=== PATIENT | male | born 1975 | race Caucasian/White ===

== ENCOUNTER 2016-12-12 17:07 | Inpatient (IN) | payer BC, OTHER ==
--- NOTE | 2016-12-12 17:27 | ED ---
General Adult HPI - General Chief complaint: Extremity Injury, Upper Stated complaint: Arm Swelling x2days (chemo pt) Time Seen by Provider: 12/12/16 17:15 Source: patient, RN notes reviewed Mode of arrival: ambulatory Limitations: no limitations - History of Present Illness Initial comments: This is a 41-year-old male who presents emergency department with past medical history significant for pancreatitis cancer. Patient has a port in place. Patient states he has his infusion pump removed yesterday and he slept on his arm wrong when he woke up his whole arm was swollen from the shoulder down. Patient denies the redness of the area. Patient denies any difficulty breathing shortness breath or chest pain. Patient states the left arm is completely normal. Patient denies any injury or trauma to the area. Patient denies any recent fever chills or cough. Patient denies any other symptoms at this time. Patient states he's got swelling to both legs but that has been something ongoing since he's got chemotherapy. Patient is on Xarelto. - Related Data Home Medications Medication Instructions Recorded Confirmed Arnica Gel Homeopathic 1 applic TOPICAL TID PRN 12/12/16 12/12/16 Diphenox-Atrop 2.5-0.025 mg 2 tab PO QID PRN 12/12/16 12/12/16 [Lomotil] HYDROcodone/APAP 10-325MG [[place] 1 - 2 tab PO Q4HR PRN MDD 6 TABS 12/12/1612/12 10-325] Iron Bisglycinate 25 mg PO BID 12/12/16 12/12/16 LORazepam [Ativan] 1 tab PO TID 12/12/16 12/12/16 Lidocaine-Prilocaine Cream [Emla 1 applic TOPICAL DAILY PRN 12/12/16 12/12/16 Cream 2.5%/2.5%] Lipase/Protease/Amylase [Daniel Baumann 3 cap PO TID 12/12/16 12/12/16 36,000 Units Capsule] Loperamide [Imodium] 2 - 4 mg PO QID PRN 12/12/16 12/12/16 Magnesium Citrate [Citrate of 150 ml PO BID PRN 12/12/16 12/12/16 Magnesia] Ondansetron HCl [Zofran] 8 mg PO Q8H PRN 12/12/16 12/12/16 Prochlorperazine [Compazine] 10 mg PO Q6H PRN 12/12/16 12/12/16 Rivaroxaban [Xarelto] 15 mg PO BID 12/12/16 12/12/16 Sennosides-Docusate Sodium 2 tab PO BID 12/12/16 12/12/16 [Senokot-S] Stomatitis Cocktail 5 - 10 ml PO TID PRN 12/12/16 12/12/16 Vitamin B Complex 1 cap PO DAILY 12/12/16 12/12/16 Previous Rx's Medication Instructions Recorded Famotidine [Pepcid] 20 mg PO BID #30 tablet 09/18/16 Allergies Allergy/AdvReac Type Severity Reaction Status Date / Time No Known Allergies Allergy Verified 12/12/16 17:30 Review of Systems ROS Statement: Those systems with pertinent positive or pertinent negative responses have been documented in the HPI. ROS Other: All systems not noted in ROS Statement are negative. Past Medical History Past Medical History: Cancer History of Any Multi-Drug Resistant Organisms: None Reported Past Surgical History: Orthopedic Surgery Additional Past Surgical History / Comment(s): right finger surgery Past Anesthesia/Blood Transfusion Reactions: No Reported Reaction Past Psychological History: Anxiety Smoking Status: Current every day smoker Past Alcohol Use History: Rare Past Drug Use History: None Reported - Past Family History Father Family Medical History: Diabetes Mellitus Additional Family Medical History / Comment(s): pacratic cancer. passed at age 45 Mother Family Medical History: Diabetes Mellitus Additional Family Medical History / Comment(s): cardiac stents General Exam - General Exam Comments Initial Comments: GENERAL: Patient is well-developed and well-nourished. Patient is nontoxic and well- hydrated and is in no acute distress. ENT: Neck is soft and supple. No significant lymphadenopathy is noted. Oropharynx is clear. Moist mucous membranes. Neck has full range of motion without eliciting any pain. EYES: The sclera were anicteric and conjunctiva were pink and moist. Extraocular movements were intact and pupils were equal round and reactive to light. Eyelids were unremarkable. PULMONARY: Unlabored respirations. Good breath sounds bilaterally. No audible rales rhonchi or wheezing was noted. CARDIOVASCULAR: Patient is slightly tachycardic at 105 beats a minute ABDOMEN: Soft and nontender with normal bowel sounds. No palpable organomegaly was noted. There is no palpable pulsatile mass. SKIN: Skin is clear with no lesions or rashes and otherwise unremarkable. NEUROLOGIC: Patient is alert and oriented x3. Cranial nerves II through XII are grossly intact. Motor and sensory are also intact. Normal speech, volume and content. Symmetrical smile. MUSCULOSKELETAL: Normal extremities with adequate strength and full range of motion. Both legs have a edema bilaterally. Right arm is swollen from the shoulder down. Left arm is completely normal. LYMPHATICS: No significant lymphadenopathy is noted PSYCHIATRIC: Normal psychiatric evaluation. Normal interpersonal interactions appears functionally intact in deals appropriately with others. No signs of depression. No signs of anxiety. Limitations: no limitations Course Vital Signs 12/12/16 17:12 Temperature 99.5 F Pulse Rate 120 H Respiratory 18 Rate Blood Pressure 153/95 O2 Sat by Pulse 98 Oximetry Medical Decision Making - Medical Decision Making Patient is positive for blood clot in the right arm per the ultrasound. I started the patient on heparin. I spoke with the nurse practitioner for Dr. Moody's group and admitted the patient. I wrote admitting orders. Patient states he has no chest pain no difficulty breathing at this time. Critical Care Time Critical Care Time: Yes Total Critical Care Time: 35 Disposition Clinical Impression: DVT (deep venous thrombosis) Disposition[facility] Time of Disposition: 18:28
[2016-12-12] MEDS ORDERED: HEPARIN SODIUM,PORCINE 10,000 UNIT/ML 1 ML VIAL IV ONE (18:26)
[2016-12-12] MEDS ORDERED: SODIUM CHLORIDE 0.9% 1,000 ML IV ONE (18:28)
[2016-12-12] MEDS ORDERED: HYDROmorphone 1 MG/ML 1 ML SYRINGE IVP STA (18:53)
[2016-12-12 18:54] LABS: Basophils % (A) 0 %; CH 27.1; CHCM 31.8; Eosinophils # (A) 0.1 k/uL (0-0.7); Eosinophils % (A) 1 %; HCT 35.8 % (39.0-53.0); HDW 2.99; HGB 11.4 gm/dL (13.0-17.5); Hypochromasia Slight; Luc # (Auto) 0.05; Luc % (Auto) 1; Lymphocytes # (A) 0.8 k/uL (1.0-4.8); Lymphocytes % (A) 10 %; MCH 27.1 pg (25.0-35.0); MCHC 31.7 g/dL (31.0-37.0); MCV 85.4 fL (80.0-100.0); Mean Platelet Volume 7.6; Monocytes # (A) 0.1 k/uL (0-1.0); Monocytes % (A) 1 %; Neutrophils # (A) 6.9 k/uL (1.3-7.7); Neutrophils % (A) 87 %; RDW 15.1 % (11.5-15.5); WBC 7.9 k/uL (3.8-10.6); WBC (Perox) 8.65
[2016-12-12] MEDS ORDERED: HYDROmorphone 1 MG/ML 1 ML SYRINGE IM PRN (18:54)
[2016-12-12] MEDS: HEPARIN SODIUM,PORCINE/D5W PMX 25,000 UNIT in DEXTROSE/WATER 1 500ML.BAG IV SCH (18:56)
[2016-12-12 19:08] LABS: ALT 83 U/L (21-72); AST 113 U/L (17-59); Alkaline Phosphatase 509 U/L (38-126); Anion Gap 11 mmol/L; Blood Urea Nitrogen 18 mg/dL (9-20); Calcium 8.7 mg/dL (8.4-10.2); Carbon Dioxide 28 mmol/L (22-30); Chloride 96 mmol/L (98-107); Glucose 140 mg/dL (74-99); Non-African American GFR(MDRD) >60 (>60 ml/min/1.73 sqM); Potassium 3.9 mmol/L (3.5-5.1); Sodium 135 mmol/L (137-145); Total Bilirubin 1.1 mg/dL (0.2-1.3); Total Protein 6.5 g/dL (6.3-8.2)
--- NOTE | 2016-12-12 19:42 | US ---
EXAMINATION TYPE: US venous doppler duplex UE RT DATE OF EXAM: 12/12/2016 6:29 PM COMPARISON: NONE CLINICAL HISTORY: Pain, right arm swelling. SIDE PERFORMED: Right TECHNOLOGIST IMPRESSION: Right Arm: Positive for DVT, starting at the upper IJV and extending through the axilla v. The upper basil v also has superficial clot. Findings discussed with nurse Austin at 1930PM when the dictation became unlocked. IMPRESSION: Deep venous thrombosis of the upper internal jugular vein extending through the axilla. Additionally the upper basilic vein is also thrombosed.
[2016-12-12 19:54] LABS: INR 1.4 (<1.1); Partial Thromboplastin Time 26.4 sec (22.0-30.0); Prothrombin Time 13.6 sec (9.0-12.0)
[2016-12-12 20:15] VITALS: BMI 22.1
[2016-12-12] MEDS: ONDANSETRON 4 MG/2 ML VIAL IVP PRN (22:14)
[2016-12-12] MEDS: HYDROmorphone 1 MG/ML 1 ML SYRINGE IVP PRN (23:52)
[2016-12-13] MEDS ORDERED: HEPARIN SODIUM,PORCINE 10,000 UNIT/ML 1 ML VIAL IV STA (02:48)
[2016-12-13] MEDS: HYDROmorphone 1 MG/ML 1 ML SYRINGE IVP PRN ×6 (03:33→22:24)
[2016-12-13] MEDS: HEPARIN SODIUM,PORCINE/D5W PMX 25,000 UNIT in DEXTROSE/WATER 1 500ML.BAG IV SCH (12:36)
[2016-12-13] MEDS: ONDANSETRON 4 MG/2 ML VIAL IVP PRN ×2 (16:36→22:29)
[2016-12-13] MEDS: LIPASE 5,000/PROTEASE 17,000/AMYLASE 27,0000 PO SCH (17:21)
--- NOTE | 2016-12-13 18:05 | P.HPIM ---
History of Present Illness H&P Date: 12/13/16 Chief Complaint: Forearm swelling 41-year-old gentleman with stage IV pancreatic cancer comes in the hospital with progressive worsening of right arm swelling. Patient was diagnosed with the pancreas cancer with metastases to the liver and is currently being treated cancer centers of [facility]. Patient apparently underwent his last cycle of chemotherapy of unknown drug 2 days ago. Patient started to notice progressive worsening of his arm swelling. Patient was apparently told he needs to have a different type of chemotherapy as his disease has progressed. Patient apparently has a computed tomography scan done within the last few days. Patient has had a MediPort in his chest. Patient has been maintaining ulcer although as he had a PICC line induced DVT on the left upper arm within the last month. Currently denies having any chest pain difficulty breathing nausea vomiting or diarrhea. Patient may complaints are pain in his right upper arm and bilateral lower extremities. Review of Systems All systems: negative (Noted in HPI) Past Medical History Past Medical History: Cancer, Deep Vein Thrombosis (DVT), Pulmonary Embolus (PE) Additional Past Medical History / Comment(s): panceratic cancer diag Sep 2016, Last chemo treament was 12/12/16, infusion pump was removed right side and DVt developed. Pt has a HX of blood clots in spleen, kidney , PE History of Any Multi-Drug Resistant Organisms: None Reported Past Surgical History: Orthopedic Surgery Additional Past Surgical History / Comment(s): right finger surgery, right subclavian port placed 4 weeks ago Past Anesthesia/Blood Transfusion Reactions: No Reported Reaction Past Psychological History: Anxiety Smoking Status: Current every day smoker Past Alcohol Use History: Rare Past Drug Use History: None Reported - Past Family History Father Family Medical History: Diabetes Mellitus Additional Family Medical History / Comment(s): pacratic cancer. passed at age 45 Mother Family Medical History: Diabetes Mellitus Additional Family Medical History / Comment(s): cardiac stents Medications and Allergies Home Medications Medication Instructions Recorded Confirmed Type Arnica Gel Homeopathic 1 applic TOPICAL TID PRN 12/12/16 12/12/16 History Diphenox-Atrop 2.5-0.025 mg 2 tab PO QID PRN 12/12/16 12/12/16 History [Lomotil] HYDROcodone/APAP 10-325MG [[place] 1 - 2 tab PO Q4HR PRN MDD 6 TABS 12/12/1612/12 History 10-325] Iron Bisglycinate 25 mg PO BID 12/12/16 12/12/16 History LORazepam [Ativan] 1 tab PO TID 12/12/16 12/12/16 History Lidocaine-Prilocaine Cream [Emla 1 applic TOPICAL DAILY PRN 12/12/16 12/12/16 History Cream 2.5%/2.5%] Lipase/Protease/Amylase [Daniel Dr 3 cap PO TID 12/12/16 12/12/16 History 36,000 Units Capsule] Loperamide [Imodium] 2 - 4 mg PO QID PRN 12/12/16 12/12/16 History Magnesium Citrate [Citrate of 150 ml PO BID PRN 12/12/16 12/12/16 History Magnesia] Ondansetron HCl [Zofran] 8 mg PO Q8H PRN 12/12/16 12/12/16 History Prochlorperazine [Compazine] 10 mg PO Q6H PRN 12/12/16 12/12/16 History Rivaroxaban [Xarelto] 15 mg PO BID 12/12/16 12/12/16 History Sennosides-Docusate Sodium 2 tab PO BID 12/12/16 12/12/16 History [Senokot-S] Stomatitis Cocktail 5 - 10 ml PO TID PRN 12/12/16 12/12/16 History Vitamin B Complex 1 cap PO DAILY 12/12/16 12/12/16 History Allergies Allergy/AdvReac Type Severity Reaction Status Date / Time No Known Allergies Allergy Verified 12/12/16 17:30 Physical Exam Vitals: Vital Signs Temp Pulse Resp BP Pulse Ox 12/13/16 16:27 98.4 F 84 16 127/91 96 12/13/16 16:20 16 12/13/16 11:55 92 16 152/73 95 12/13/16 09:28 98.1 F 12/13/16 08:16 16 12/13/16 08:14 94 16 140/88 95 12/13/16 04:00 98.3 F 92 18 135/74 93 L 12/13/16 00:00 99.0 F 88 18 124/76 97 12/12/16 21:25 98.2 F 88 18 132/69 99 12/12/16 20:01 98.1 F 82 16 134/86 97 Intake and Output 12/13/16 12/13/16 12/13/16 06:59 14:59 22:59 Intake Total 880.913 682.087 Output Total 150 400 Balance 730.913 282.087 Intake: IV 288 Heparin Sodium,Porcine/ 208 D5w Pmx 25,000 unit In Dextrose/Water 1 500ml. bag @ 18 UNITS/KG/HR 26. 12 mls/hr IV .Q19H9M PENDING SALE TO [facility] Rx#:[id number] Sodium Chloride 0.9% 1, 80 000 ml @ 75 mls/hr IV . [id number] ONE Rx#:[id number] Intake, IV Titration 880.913 294.087 Amount Heparin Sodium,Porcine/ 205.913 294.087 D5w Pmx 25,000 unit In Dextrose/Water 1 500ml. bag @ 18 UNITS/KG/HR 26. 12 mls/hr IV .Q19H9M PENDING SALE TO [facility] Rx#:[id number] Sodium Chloride 0.9% 1, 675 000 ml @ 75 mls/hr IV . [id number] ONE Rx#:[id number] Oral 100 Output: Urine 150 400 Other: Weight 72.3 kg Gen. appearance oriented 3 appears to be in some distress Neck is supple no JVD Right upper extremity significant edema pitting in nature and tenderness to palpation report is noted on the right anterior chest cavity no tenderness to palpation of the site Lungs good air entry clear to auscultation no rhonchi or wheezing Heart S1-S2 heart regular rate and rhythm no murmurs appreciable Abdomen diffusely tender there is some enlargement that is appreciated in the mid abdominal region Neuro no focal motor or sensory deficits noted Extremities 1+ edema tender to palpation diffusely in the lower activities. Results CBC & Chem 7: 12/12/16 18:40 12/12/16 18:40 Labs: Abnormal Lab Results - Last 24 Hours (Table) 12/12/16 12/12/16 12/12/16 Range/Units 18:40 18:40 18:40 RBC 4.20 L (4.30-5.90) m/uL Hgb 11.4 L (13.0-17.5) gm/dL Hct 35.8 L (39.0-53.0) % Plt Count 106 L (150-450) k/uL Lymphocytes # 0.8 L (1.0-4.8) k/uL PT 13.6 H (9.0-12.0) sec APTT (22.0-30.0) sec Sodium 135 L (137-145) mmol/L Chloride 96 L (98-107) mmol/L Glucose 140 H (74-99) mg/dL AST 113 H (17-59) U/L ALT 83 H (21-72) U/L Alkaline Phosphatase 509 H (38-126) U/L Albumin 2.9 L (3.5-5.0) g/dL 12/13/16 12/13/16 Range/Units 01:37 08:47 RBC (4.30-5.90) m/uL Hgb (13.0-17.5) gm/dL Hct (39.0-53.0) % Plt Count (150-450) k/uL Lymphocytes # (1.0-4.8) k/uL PT (9.0-12.0) sec APTT 39.1 H 56.2 H (22.0-30.0) sec Sodium (137-145) mmol/L Chloride (98-107) mmol/L Glucose (74-99) mg/dL AST (17-59) U/L ALT (21-72) U/L Alkaline Phosphatase (38-126) U/L Albumin (3.5-5.0) g/dL Thrombosis Risk Factor Assmnt - Choose All That Apply Each Factor Represents 1 point: Age 41-60 years Other Risk Factors: Yes Each Risk Factor Represents 3 Points: History of DVT/PE Thrombosis Risk Factor Assessment Total Risk Factor Score: 4 Thrombosis Risk Factor Assessment Level: Moderate Risk Assessment and Plan Plan: #1 catheter associated deep venous thrombus of the right upper extremity in a patient with stage IV pancreatic cancer #2 history of DVT in the left upper extremity was currently on Cymbalta and has been compliant #3 stage IV pancreatic cancer. #4 history of hypertension. Plan We'll have a vascular surgeon consultation for removal of the catheter at this time. Patient's pain would improve after the catheter is removed Pain control. Patient does have stage IV cancer and has poor prognosis. We'll have her oncologist to the patient. I did request the scans and other treatment plans from cancer centers available. We'll record changer assembler the anticoagulation from IV heparin to Lovenox as it is preferred in oncologic patient's.
[2016-12-13] MEDS: FAMOTIDINE 20 MG TAB PO SCH (20:50)
[2016-12-13] MEDS: SENNOSIDES-DOCUSATE SODIUM 1 EACH TAB PO SCH (20:50)
[2016-12-13] MEDS: LORazepam 1 MG TAB PO SCH (20:51)
[2016-12-13] MEDS: ENOXAPARIN 80 MG/0.8 ML SYRINGE SQ SCH (20:51)
[2016-12-14] MEDS: HYDROmorphone 1 MG/ML 1 ML SYRINGE IVP PRN ×5 (01:22→13:03)
[2016-12-14 06:30] LABS: INR 1.4 (<1.1); Partial Thromboplastin Time 31.8 sec (22.0-30.0); Prothrombin Time 13.6 sec (9.0-12.0)
--- NOTE | 2016-12-14 07:19 | P.GSCN ---
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 Pulses present impression is deep and thrombosis of the right arm including internal jugular vein patient is on heparin heparin we will remove the Port-A-Cath risk and complication bleeding infection has been discussed Past Medical History Past Medical History: Cancer, Deep Vein Thrombosis (DVT), Pulmonary Embolus (PE) Additional Past Medical History / Comment(s): panceratic cancer diag Sep 2016, Last chemo treament was 12/12/16, infusion pump was removed right side and DVt developed. Pt has a HX of blood clots in spleen, kidney , PE History of Any Multi-Drug Resistant Organisms: None Reported Past Surgical History: Orthopedic Surgery Additional Past Surgical History / Comment(s): right finger surgery, right subclavian port placed 4 weeks ago Past Anesthesia/Blood Transfusion Reactions: No Reported Reaction Past Psychological History: Anxiety Smoking Status: Current every day smoker Past Alcohol Use History: Rare Past Drug Use History: None Reported - Past Family History Father Family Medical History: Diabetes Mellitus Additional Family Medical History / Comment(s): pacratic cancer. passed at age 45 Mother Family Medical History: Diabetes Mellitus Additional Family Medical History / Comment(s): cardiac stents Medications and Allergies Home Medications Medication Instructions Recorded Confirmed Type Arnica Gel Homeopathic 1 applic TOPICAL TID PRN 12/12/16 12/12/16 History Diphenox-Atrop 2.5-0.025 mg 2 tab PO QID PRN 12/12/16 12/12/16 History [Lomotil] HYDROcodone/APAP 10-325MG [[place] 1 - 2 tab PO Q4HR PRN MDD 6 TABS 12/12/1612/12 History 10-325] Iron Bisglycinate 25 mg PO BID 12/12/16 12/12/16 History LORazepam [Ativan] 1 tab PO TID 12/12/16 12/12/16 History Lidocaine-Prilocaine Cream [Emla 1 applic TOPICAL DAILY PRN 12/12/16 12/12/16 History Cream 2.5%/2.5%] Lipase/Protease/Amylase [Creon Dr 3 cap PO TID 12/12/16 12/12/16 History 36,000 Units Capsule] Loperamide [Imodium] 2 - 4 mg PO QID PRN 12/12/16 12/12/16 History Magnesium Citrate [Citrate of 150 ml PO BID PRN 12/12/16 12/12/16 History Magnesia] Ondansetron HCl [Zofran] 8 mg PO Q8H PRN 12/12/16 12/12/16 History Prochlorperazine [Compazine] 10 mg PO Q6H PRN 12/12/16 12/12/16 History Rivaroxaban [Xarelto] 15 mg PO BID 12/12/16 12/12/16 History Sennosides-Docusate Sodium 2 tab PO BID 12/12/16 12/12/16 History [Senokot-S] Stomatitis Cocktail 5 - 10 ml PO TID PRN 12/12/16 12/12/16 History Vitamin B Complex 1 cap PO DAILY 12/12/16 12/12/16 History Allergies Allergy/AdvReac Type Severity Reaction Status Date / Time No Known Allergies Allergy Verified 12/12/16 17:30 Surgical - Exam Vital Signs Temp Pulse Resp BP Pulse Ox 99.5 F 120 H 18 153/95 98 12/12/16 17:12 12/12/16 17:12 12/12/16 17:12 12/12/16 17:12 12/12/16 17:12 Results - Labs 12/12/16 18:40 12/12/16 18:40 Abnormal Lab Results - Last 24 Hours (Table) 12/13/16 12/14/16 Range/Units 08:47 06:01 PT 13.6 H (9.0-12.0) sec APTT 56.2 H 31.8 H (22.0-30.0) sec
[2016-12-14] MEDS: ONDANSETRON 4 MG/2 ML VIAL IVP PRN (07:25)
[2016-12-14] MEDS: LIPASE 5,000/PROTEASE 17,000/AMYLASE 27,0000 PO SCH ×2 (07:59→14:04)
[2016-12-14] MEDS ORDERED: MIDAZOLAM 2 MG/2 ML VIAL ONE (08:05)
[2016-12-14] MEDS ORDERED: LIDOCAINE 1% INJ 10MG/ML (20 ML MDV) ONE (08:05)
[2016-12-14] MEDS ORDERED: fentaNYL (PF) 50 MCG/ML 2 ML AMP ONE (08:05)
[2016-12-14] MEDS ORDERED: PROPOFOL 10 MG/ML 20 ML VIAL IV ONE (08:05)
[2016-12-14] MEDS ORDERED: KETAMINE 10 MG/ML 20 ML VIAL ONE (08:05)
[2016-12-14] MEDS ORDERED: SODIUM CHLORIDE 0.9% 50 ML with ceFAZolin 2,000 MG IV ONE ×2 (08:21)
[2016-12-14] MEDS ORDERED: LACTATED RINGERS 1,000 ML IV ONE (08:21)
[2016-12-14] MEDS ORDERED: LIDOCAINE 1% INJ 10MG/ML (20 ML MDV) SQ ONE (08:23)
--- NOTE | 2016-12-14 08:45 | P.PCN ---
Description of Procedure: Diagnoses is carcinoma of the pancreas, history of deep vein thrombosis of the right arm and right internal jugular vein Procedure patient was brought to the operating room right side of the chest and neck was prepped and draped applied 1% lidocaine for infected this patient had a -dual-chamber Port-A-Cath transverse incision was made The deepened through the skin and subcu subcutaneous tissue Port-A-Cath was removed along with the catheter wound was irrigated with saline hemostasis was controlled incision was closed in 2 layers skin was closed with 5-0 nylon with interrupted suture dressing applied patient had the procedure well
[2016-12-14 08:57] VITALS: TEMP 98
[2016-12-14] MEDS: FAMOTIDINE 20 MG TAB PO SCH (10:21)
[2016-12-14] MEDS: ENOXAPARIN 80 MG/0.8 ML SYRINGE SQ SCH (10:21)
[2016-12-14] MEDS: SENNOSIDES-DOCUSATE SODIUM 1 EACH TAB PO SCH (10:21)
[2016-12-14 11:13] VITALS: BP 136/79; PULSE 76; RESP 12
[2016-12-14] MEDS: LORazepam 1 MG TAB PO SCH (14:04)
--- NOTE | 2017-01-14 14:48 | P.DS ---
Providers Date of admission: 12/12/16 18:29 Attending physician: Tarik Sandoval Consults: 12/13/16 16:10 Consult Physician Urgent Consulting Provider: El Franco Consult Reason/Comments: DVT< port removal Do you want consulting provider notified?: Yes Primary care physician: Physician Nonstaff Hospital Course: 41-year-old gentleman with stage IV pancreatic cancer comes in the hospital with progressive worsening of right arm swelling. Patient was diagnosed with the pancreas cancer with metastases to the liver and is currently being treated [facility]. Patient apparently underwent his last cycle of chemotherapy of unknown drug 2 days ago. Patient started to notice progressive worsening of his arm swelling. Patient was apparently told he needs to have a different type of chemotherapy as his disease has progressed. Patient apparently has a computed tomography scan done within the last few days. Patient has had a MediPort in his chest. Patient has been maintaining ulcer although as he had a PICC line induced DVT on the left upper arm within the last month. Currently denies having any chest pain difficulty breathing nausea vomiting or diarrhea. Patient may complaints are pain in his right upper arm and bilateral lower extremities. improved on the day of discharge. Gen. appearance oriented 3 appears to be in some distress Neck is supple no JVD Right upper extremity significant edema pitting in nature and tenderness to palpation report is noted on the right anterior chest cavity no tenderness to palpation of the site Lungs good air entry clear to auscultation no rhonchi or wheezing Heart S1-S2 heart regular rate and rhythm no murmurs appreciable Abdomen diffusely tender there is some enlargement that is appreciated in the mid abdominal region Neuro no focal motor or sensory deficits noted Extremities 1+ edema tender to palpation diffusely in the lower activities. #1 catheter associated deep venous thrombus of the right upper extremity in a patient with stage IV pancreatic cancer #2 history of DVT in the left upper extremity was currently on Cymbalta and has been compliant #3 stage IV pancreatic cancer. #4 history of hypertension. Plan Catheter was removed Discharged home on lovenox. Follow up with oncology Plan - Discharge Summary New Discharge Prescriptions: HYDROmorphone HCL [Dilaudid] 4 mg PO Q4H PRN #60 tab PRN Reason: Pain Scale 7 To 10 Discharge Medication List Famotidine [Pepcid] 20 mg PO BID #30 tablet 09/18/16 [Rx] Arnica Gel Homeopathic 1 applic TOPICAL TID PRN 12/12/16 [History] Diphenox-Atrop 2.5-0.025 mg [Lomotil] 2 tab PO QID PRN 12/12/16 [History] HYDROcodone/APAP 10-325MG [Leopold 10-325] 1 - 2 tab PO Q4HR PRN MDD 6 TABS [History] Iron Bisglycinate 25 mg PO BID 12/12/16 [History] LORazepam [Ativan] 1 tab PO TID 12/12/16 [History] Lidocaine-Prilocaine Cream [Emla Cream 2.5%/2.5%] 1 applic TOPICAL DAILY PRN 12/26 [History] Lipase/Protease/Amylase [Creon Dr 36,000 Units Capsule] 3 cap PO TID 12/12/16 [ History] Loperamide [Imodium] 2 - 4 mg PO QID PRN 12/12/16 [History] Magnesium Citrate [Citrate of Magnesia] 150 ml PO BID PRN 12/12/16 [History] Ondansetron HCl [Zofran] 8 mg PO Q8H PRN 12/12/16 [History] Prochlorperazine [Compazine] 10 mg PO Q6H PRN 12/12/16 [History] Sennosides-Docusate Sodium [Senokot-S] 2 tab PO BID 12/12/16 [History] Stomatitis Cocktail 5 - 10 ml PO TID PRN 12/12/16 [History] Vitamin B Complex 1 cap PO DAILY 12/12/16 [History] HYDROmorphone HCL [Dilaudid] 4 mg PO Q4H PRN #60 tab 12/14/16 [Rx] Oseltamivir [Tamiflu] 75 mg PO Q12HR #10 cap 01/12/17 [Rx] Albuterol Nebulized [Ventolin Nebulized] 2.5 mg INHALATION Q4H 15 Days 01/13/17 [Rx] Follow up Appointment(s)/Referral(s): Augustine Calloway MD [STAFF PHYSICIAN] - 1 Week Nonstaff,Physician [Primary Care Provider] - 1-2 days El Franco MD [STAFF PHYSICIAN] - 1 Week Carlos Laird MD [STAFF PHYSICIAN] - 1 Week Patient Instructions/Handouts: Deep Venous Thrombosis (DC) Activity/Diet/Wound Care/Special Instructions: Follow up with Dr Franco in 10 days for removal of sutures. Discharge Disposition: HOME SELF-CARE
== END 2016-12-14 15:09 | disposition home or self-care (01) | DRG 315 ==
LOC: EC 17:07 → 5ONC 18:29 → 6SEL 21:33
PROVIDERS: ADMIT Internal Medicine; ATTEND Internal Medicine
PROC: 0JPT3WZ Removal of Totally Implantable Vascular Access Device from Trunk Subcutaneous Tissue and Fascia, Percutaneous Approach (ICD-10-PCS; 2016-12-14)
PROC: 0JPT3XZ Removal of Tunneled Vascular Access Device from Trunk Subcutaneous Tissue and Fascia, Percutaneous Approach (ICD-10-PCS; principal; 2016-12-14 08:00)
DX: T82.818A Embolism due to vascular prosthetic devices, implants and grafts, initial encounter (principal); I82.C11 Acute embolism and thrombosis of right internal jugular vein; C25.9 Malignant neoplasm of pancreas, unspecified; C78.7 Secondary malignant neoplasm of liver and intrahepatic bile duct; I10 Essential (primary) hypertension; R00.0 Tachycardia, unspecified; R60.0 Localized edema; F41.9 Anxiety disorder, unspecified; F17.200 Nicotine dependence, unspecified, uncomplicated; Z86.711 Personal history of pulmonary embolism; Z86.718 Personal history of other venous thrombosis and embolism; Z83.3 Family history of diabetes mellitus; Z79.01 Long term (current) use of anticoagulants; Z79.891 Long term (current) use of opiate analgesic; Z79.899 Other long term (current) drug therapy; Z92.21 Personal history of antineoplastic chemotherapy; Z82.49 Family history of ischemic heart disease and other diseases of the circulatory system; Z80.0 Family history of malignant neoplasm of digestive organs
CPT/HCPCS: 36415; 80053; 85025; 85610; 85730; 96365; 96375; 96376; 99285

== ENCOUNTER 2017-01-11 20:29 | Inpatient (IN) | payer BC, OTHER ==
[2017-01-11] MEDS ORDERED: IPRATROPIUM-ALBUTEROL 3 ML NEB INHALATION STA (20:50)
[2017-01-11] MEDS ORDERED: SODIUM CHLORIDE 0.9% 1,000 ML IV STA (20:50)
[2017-01-11 21:22] LABS: ALT 54 U/L (21-72); AST 150 U/L (17-59); Alkaline Phosphatase 617 U/L (38-126); Anion Gap 7 mmol/L; Blood Urea Nitrogen 14 mg/dL (9-20); Calcium 8.4 mg/dL (8.4-10.2); Carbon Dioxide 25 mmol/L (22-30); Chloride 99 mmol/L (98-107); Glucose 85 mg/dL (74-99); Magnesium 1.8 mg/dL (1.6-2.3); Non-African American GFR(MDRD) >60 (>60 ml/min/1.73 sqM); Potassium 4.3 mmol/L (3.5-5.1); Sodium 131 mmol/L (137-145); Total Bilirubin 1.3 mg/dL (0.2-1.3)
[2017-01-11 21:27] LABS: INR 1.9 (<1.1); Prothrombin Time 18.3 sec (9.0-12.0)
--- NOTE | 2017-01-11 21:27 | ED ---
SOB HPI - General Chief Complaint: Shortness of Breath Stated Complaint: DIFFICULTY BREATHING; HX OF PANCREATIC CANCER Time Seen by Provider: 01/11/17 20:43 Source: patient, RN notes reviewed Mode of arrival: wheelchair Limitations: physical limitation - History of Present Illness Initial Comments: This is a 41-year-old male with history Cancer with metastatic disease who presents with complaints of the onset about 5 days ago of cough shortness of breath she's had intermittent fevers and chills is a cough with yellow clear phlegm. Temperature 100.4 upon arrival here. 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 MD Complaint: shortness of breath, cough - Related Data Home Medications Medication Instructions Recorded Confirmed Arnica Gel Homeopathic 1 applic TOPICAL TID PRN 12/12/16 12/12/16 Diphenox-Atrop 2.5-0.025 mg 2 tab PO QID PRN 12/12/16 12/12/16 [Lomotil] HYDROcodone/APAP 10-325MG [[place] 1 - 2 tab PO Q4HR PRN MDD 6 TABS 12/12/1612/12 10-325] Iron Bisglycinate 25 mg PO BID 12/12/16 12/12/16 LORazepam [Ativan] 1 tab PO TID 12/12/16 12/12/16 Lidocaine-Prilocaine Cream [Emla 1 applic TOPICAL DAILY PRN 12/12/16 12/12/16 Cream 2.5%/2.5%] Lipase/Protease/Amylase [Daniel Baumann 3 cap PO TID 12/12/16 12/12/16 36,000 Units Capsule] Loperamide [Imodium] 2 - 4 mg PO QID PRN 12/12/16 12/12/16 Magnesium Citrate [Citrate of 150 ml PO BID PRN 12/12/16 12/12/16 Magnesia] Ondansetron HCl [Zofran] 8 mg PO Q8H PRN 12/12/16 12/12/16 Prochlorperazine [Compazine] 10 mg PO Q6H PRN 12/12/16 12/12/16 Sennosides-Docusate Sodium 2 tab PO BID 12/12/16 12/12/16 [Senokot-S] Stomatitis Cocktail 5 - 10 ml PO TID PRN 12/12/16 12/12/16 Vitamin B Complex 1 cap PO DAILY 12/12/16 12/12/16 Previous Rx's Medication Instructions Recorded Famotidine [Pepcid] 20 mg PO BID #30 tablet 09/18/16 Enoxaparin [Lovenox] 80 mg SQ Q12HR #60 syringe 12/14/16 HYDROmorphone HCL [Dilaudid] 4 mg PO Q4H PRN #60 tab 12/14/16 Allergies Allergy/AdvReac Type Severity Reaction Status Date / Time No Known Allergies Allergy Verified 12/12/16 17:30 Review of Systems ROS Statement: Those systems with pertinent positive or pertinent negative responses have been documented in the HPI. ROS Other: All systems not noted in ROS Statement are negative. Past Medical History Past Medical History: Cancer, Deep Vein Thrombosis (DVT), Pulmonary Embolus (PE) Additional Past Medical History / Comment(s): panceratic cancer diag Sep 2016, Last chemo treament was 12/12/16, infusion pump was removed right side and DVt developed. Pt has a HX of blood clots in spleen, kidney , PE History of Any Multi-Drug Resistant Organisms: None Reported Past Surgical History: Orthopedic Surgery Additional Past Surgical History / Comment(s): right finger surgery, right subclavian port placed 4 weeks ago Past Anesthesia/Blood Transfusion Reactions: No Reported Reaction Past Psychological History: Anxiety Smoking Status: Current every day smoker Past Alcohol Use History: Rare Past Drug Use History: None Reported - Past Family History Father Family Medical History: Diabetes Mellitus Additional Family Medical History / Comment(s): pacratic cancer. passed at age 45 Mother Family Medical History: Diabetes Mellitus Additional Family Medical History / Comment(s): cardiac stents General Exam - General Exam Comments Initial Comments: This a well-developed asthenic appearing male Limitations: physical limitation General appearance: alert, in no apparent distress Head exam: Present: atraumatic, normocephalic, normal inspection Eye exam: Present: normal appearance, PERRL, EOMI. Absent: scleral icterus, conjunctival injection, periorbital swelling ENT exam: Present: mucous membranes dry Neck exam: Present: normal inspection. Absent: tenderness, meningismus, lymphadenopathy Respiratory exam: Present: decreased breath sounds. Absent: respiratory distress, wheezes, rales, rhonchi, stridor Cardiovascular Exam: Present: normal rhythm, tachycardia, normal heart sounds. Absent: systolic murmur, diastolic murmur, rubs, gallop, clicks GI/Abdominal exam: Present: soft, normal bowel sounds. Absent: distended, tenderness, guarding, rebound, rigid Extremities exam: Present: full ROM, normal capillary refill, pedal edema. Absent: tenderness, joint swelling, calf tenderness Back exam: Present: normal inspection Neurological exam: Present: alert, oriented X3, CN II-XII intact Psychiatric exam: Present: normal affect, normal mood Skin exam: Present: warm, dry, intact, normal color. Absent: rash Course Vital Signs 01/11/17 01/11/17 01/11/17 20:30 20:45 21:10 Temperature 98.8 F 100.4 F H Pulse Rate 113 H 103 H 96 Respiratory 18 20 Rate Blood Pressure 117/77 125/79 O2 Sat by Pulse 92 L 93 L Oximetry 01/11/17 01/11/17 01/11/17 21:19 22:00 23:20 Temperature Pulse Rate 102 H 97 94 Respiratory 18 18 Rate Blood Pressure 116/73 128/77 O2 Sat by Pulse 92 L 92 L Oximetry Medical Decision Making - Medical Decision Making Patient did get some relief after the DuoNeb treatment. I did discuss the findings with him and his family he will be admitted he does have influenza type B he is one-week post chemotherapy. He does demonstrate evidence of bronchospasm. Also thrombocytopenia - Lab Data Result diagrams: 01/11/17 21:00 01/11/17 21:00 Lab Results 01/11/17 01/11/17 01/11/17 Range/Units 21:00 21:00 21:00 WBC 4.7 (3.8-10.6) k/uL RBC 3.69 L (4.30-5.90) m/uL Hgb 9.8 L D (13.0-17.5) gm/dL Hct 31.2 L (39.0-53.0) % MCV 84.6 (80.0-100.0) fL MCH 26.7 (25.0-35.0) pg MCHC 31.5 (31.0-37.0) g/dL RDW 17.1 H (11.5-15.5) % Plt Count 29 L* D (150-450) k/uL Neutrophils % 84 % Lymphocytes % 6 % Monocytes % 7 % Eosinophils % 0 % Basophils % 0 % Neutrophils # 4.0 (1.3-7.7) k/uL Lymphocytes # 0.3 L (1.0-4.8) k/uL Monocytes # 0.3 (0-1.0) k/uL Eosinophils # 0.0 (0-0.7) k/uL Basophils # 0.0 (0-0.2) k/uL Manual Slide Review Performed Toxic Vacuolation Present Hypochromasia Slight Anisocytosis Slight PT (9.0-12.0) sec INR (<1.1) APTT (22.0-30.0) sec Sodium 131 L (137-145) mmol/L Potassium 4.3 (3.5-5.1) mmol/L Chloride 99 (98-107) mmol/L Carbon Dioxide 25 (22-30) mmol/L Anion Gap 7 mmol/L BUN 14 (9-20) mg/dL Creatinine 0.58 L (0.66-1.25) mg/dL Est GFR (MDRD) Af Amer >60 (>60 ml/min/1.73 sqM) Est GFR (MDRD) Non-Af >60 (>60 ml/min/1.73 sqM) Glucose 85 (74-99) mg/dL Calcium 8.4 (8.4-10.2) mg/dL Magnesium 1.8 (1.6-2.3) mg/dL Total Bilirubin 1.3 (0.2-1.3) mg/dL AST 150 H (17-59) U/L ALT 54 (21-72) U/L Alkaline Phosphatase 617 H (38-126) U/L Total Creatine Kinase 55 (55-170) U/L CK-MB (CK-2) 0.4 (0.0-2.4) ng/mL CK-MB (CK-2) Rel Index 0.7 Troponin I <0.012 (0.000-0.034) ng/mL NT-Pro-B Natriuret Pep pg/mL Total Protein 6.0 L (6.3-8.2) g/dL Albumin 2.3 L (3.5-5.0) g/dL Influenza Type A RNA (Not Detectd) Influenza Type B (PCR) (Not Detectd) 01/11/17 01/11/17 01/11/17 Range/Units 21:00 21:00 21:00 WBC (3.8-10.6) k/uL RBC (4.30-5.90) m/uL Hgb (13.0-17.5) gm/dL Hct (39.0-53.0) % MCV (80.0-100.0) fL MCH (25.0-35.0) pg MCHC (31.0-37.0) g/dL RDW (11.5-15.5) % Plt Count (150-450) k/uL Neutrophils % % Lymphocytes % % Monocytes % % Eosinophils % % Basophils % % Neutrophils # (1.3-7.7) k/uL Lymphocytes # (1.0-4.8) k/uL Monocytes # (0-1.0) k/uL Eosinophils # (0-0.7) k/uL Basophils # (0-0.2) k/uL Manual Slide Review Toxic Vacuolation Hypochromasia Anisocytosis PT 18.3 H (9.0-12.0) sec INR 1.9 (<1.1) APTT 42.0 H (22.0-30.0) sec Sodium (137-145) mmol/L Potassium (3.5-5.1) mmol/L Chloride (98-107) mmol/L Carbon Dioxide (22-30) mmol/L Anion Gap mmol/L BUN (9-20) mg/dL Creatinine (0.66-1.25) mg/dL Est GFR (MDRD) Af Amer (>60 ml/min/1.73 sqM) Est GFR (MDRD) Non-Af (>60 ml/min/1.73 sqM) Glucose (74-99) mg/dL Calcium (8.4-10.2) mg/dL Magnesium (1.6-2.3) mg/dL Total Bilirubin (0.2-1.3) mg/dL AST (17-59) U/L ALT (21-72) U/L Alkaline Phosphatase (38-126) U/L Total Creatine Kinase (55-170) U/L CK-MB (CK-2) (0.0-2.4) ng/mL CK-MB (CK-2) Rel Index Troponin I (0.000-0.034) ng/mL NT-Pro-B Natriuret Pep 670 pg/mL Total Protein (6.3-8.2) g/dL Albumin (3.5-5.0) g/dL Influenza Type A RNA Not Detected (Not Detectd) Influenza Type B (PCR) Detected H (Not Detectd) - EKG Data -: EKG Interpreted by Me EKG shows normal: sinus rhythm (Sinus rhythm a rate of 96. Interval 104 QRS duration 94 QT/QTC of 356/449 short CO interval noted ST-T wave changes) - Radiology Data Radiology results: report reviewed (I did review the imaging definite evidence of any infiltrate), image reviewed Disposition Clinical Impression: Influenza B, Febrile illness, acute, Bronchospasm, acute, Status post chemotherapy, Thrombocytopenia Disposition: ADMITTED IP TO THIS HOSP Condition: Stable
[2017-01-11 21:33] LABS: Creatine Kinase 55 U/L (55-170)
[2017-01-11 21:36] LABS: Anisocytosis Slight; Basophils % (A) 0 %; CH 26.2; CHCM 31.1; Eosinophils % (A) 0 %; HCT 31.2 % (39.0-53.0); HDW 2.88; Hypochromasia Slight; Luc # (Auto) 0.14; Luc % (Auto) 3; Lymphocytes # (A) 0.3 k/uL (1.0-4.8); Lymphocytes % (A) 6 %; MCH 26.7 pg (25.0-35.0); MCHC 31.5 g/dL (31.0-37.0); MCV 84.6 fL (80.0-100.0); Mean Platelet Volume 7.7; Monocytes # (A) 0.3 k/uL (0-1.0); Monocytes % (A) 7 %; Neutrophils % (A) 84 %; RBC 3.69 m/uL (4.30-5.90); RDW 17.1 % (11.5-15.5); WBC 4.7 k/uL (3.8-10.6); WBC (Perox) 4.58
[2017-01-11 21:46] LABS: Creatine Kinase MB 0.4 ng/mL (0.0-2.4); Troponin I <0.012 ng/mL (0.000-0.034)
[2017-01-11 21:50] LABS: HGB 9.8 gm/dL (13.0-17.5)
--- NOTE | 2017-01-11 21:52 | XR ---
EXAMINATION TYPE: XR chest 2V DATE OF EXAM: 01/11/2017 9:35 PM COMPARISON: NONE HISTORY: Difficulty breathing TECHNIQUE: Frontal and lateral views of the chest are obtained. FINDINGS: Heart and mediastinum are normal. Lungs are clear. There is no pleural effusion. There are no hilar masses. There is no heart failure. There are chest leads. There is suboptimal inspiration. IMPRESSION: Poor inspiration. Otherwise negative exam. Normal heart.
[2017-01-11 22:15] LABS: Manual Review Performed; Toxic Vacuolation Present
[2017-01-11] MEDS ORDERED: OSELTAMIVIR 75 MG CAP PO STA (23:00)
[2017-01-11] MEDS ORDERED: HYDROmorphone 1 MG/ML 1 ML SYRINGE IVP STA (23:10)
[2017-01-12] MEDS ORDERED: CEFEPIME 2 GM in SODIUM CHLORIDE 0.9% 50 ML IVPB STA (00:21)
[2017-01-12] MEDS ORDERED: NALOXONE 0.4 MG/ML 1 ML VIAL IV PRN (00:27)
[2017-01-12] MEDS ORDERED: SODIUM CHLORIDE 0.9% 1,000 ML IV SCH (00:30)
[2017-01-12] MEDS ORDERED: ONDANSETRON ODT 8 MG TAB.RAPDIS PO PRN (00:33)
[2017-01-12] MEDS ORDERED: LIDOCAINE-PRILOCAINE 2.5-2.5% CREAM 5 GM TUBE TOPICAL PRN (00:33)
[2017-01-12] MEDS ORDERED: PROCHLORPERAZINE 10 MG TAB PO PRN (00:33)
[2017-01-12] MEDS ORDERED: HYDROmorphone 1 MG/ML 1 ML SYRINGE IVP STA (00:52)
[2017-01-12] MEDS ORDERED: IPRATROPIUM-ALBUTEROL 3 ML NEB INHALATION SCH (04:00)
[2017-01-12] MEDS: HYDROmorphone 2 MG TAB PO PRN ×4 (05:03→19:45)
[2017-01-12] MEDS: IPRATROPIUM-ALBUTEROL 3 ML NEB INHALATION SCH ×5 (05:15→20:04)
[2017-01-12] MEDS: CEFEPIME 2 GM in SODIUM CHLORIDE 0.9% 50 ML IVPB SCH ×3 (08:36→23:07)
[2017-01-12] MEDS: LORazepam 1 MG TAB PO SCH ×3 (08:57→21:40)
[2017-01-12] MEDS ORDERED: ENOXAPARIN 80 MG/0.8 ML SYRINGE SQ SCH (09:00)
[2017-01-12] MEDS ORDERED: LIPASE 5,000/PROTEASE 17,000/AMYLASE 27,0000 PO SCH (09:00)
[2017-01-12] MEDS ORDERED: FAMOTIDINE 20 MG TAB PO SCH (09:00)
[2017-01-12] MEDS ORDERED: CREON 24000 UNIT PO ONE (09:30)
[2017-01-12] MEDS ORDERED: CREON 24000 UNIT PO SCH (09:30)
[2017-01-12] MEDS: OSELTAMIVIR 75 MG CAP PO SCH ×2 (11:10→19:45)
[2017-01-12] MEDS: CREON 24000 UNIT PO SCH ×3 (11:13→18:17)
--- NOTE | 2017-01-12 14:27 | P.CONS ---
History of Present Illness - Reason for Consult Consult date: 01/12/17 pancreatic adenocarcinoma Requesting physician: Herbert Dewey - Chief Complaint progressive SOB, EMILY x 5 days, fever - History of Present Illness Ori is a very pleasant 41-year-old male patient who was initially seen by Dr. Calloway in September 2016 when he presented with left mid and lower back pain. This has been ongoing for about 3-4 weeks, was progressive and persistent , stabbing, nothing was alleviating it. Patient had a CT of the abdomen and pelvis, this revealed multiple metastatic lesions in the liver as well as a 4.3 x 2.3 cm mass in the distal pancreatic body. CT of the chest was negative other than a 2 mm right upper lobe nodule. Patient had liver biopsy on 2015 and was discharged. Biopsy was positive for metastatic adenocarcinoma consistent with pancreaticobiliary/upper GI primary. CA-19-9 was elevated at 4538 at that time. Patient was seen for his first office visit with Dr. Calloway on September 24. At that visit patient was told that he had new diagnosis of stage IV pancreatic cancer, it was discussed that his cancer was not curable and the purpose of treatment was palliation of symptoms and prolongation of life. Patient stated he did want active treatment. Patient did not follow-up with Dr. Calloway but, was seen at [facility]. Patient is not able to tell me the name of his doctor at [facility]. Patient had 3 chemotherapies "with a pump", he was told this was not working and he recently had chemo 7 days ago with the new regimen. Patient also states diagnosis of blood clots "all over the place", he has been on Lovenox twice a day. Over the last 4-5 days patient has had progressive difficulty breathing and shortness of breath, he has had thick, yellow/clear sputum production, he denies any hemoptysis. Patient did have a fever on admission, last fever was last night. Patient denies any current chills or riders, he has mild oral irritation but no sore throat or ear pain, no current nausea or vomiting but he has no appetite, positive for early satiety, his abdomen is very distended and uncomfortable, patient states he did have a bowel movement yesterday, he denied black or bloody stool, no diarrhea or constipation, no dysuria or hematuria, he is very weak, mild swelling in the legs. Review of Systems All systems: negative Constitutional: Reports as per HPI Past Medical History Past Medical History: Cancer, Deep Vein Thrombosis (DVT), Pulmonary Embolus (PE) Additional Past Medical History / Comment(s): panceratic cancer diag Sep 2016, Last chemo treament was 12/12/16, infusion pump was removed right side and DVt developed. Pt has a HX of blood clots in spleen, kidney , PE History of Any Multi-Drug Resistant Organisms: None Reported Past Surgical History: Orthopedic Surgery Additional Past Surgical History / Comment(s): right finger surgery, right subclavian port placed 4 weeks ago-now removed Past Anesthesia/Blood Transfusion Reactions: No Reported Reaction Past Psychological History: Anxiety Smoking Status: Current every day smoker Past Alcohol Use History: Rare Past Drug Use History: Marijuana Additional Drug Use History / Comment(s): medical MJ, daily - Past Family History Father Family Medical History: Diabetes Mellitus Additional Family Medical History / Comment(s): pacretic cancer. passed at age 45 Mother Family Medical History: Diabetes Mellitus Additional Family Medical History / Comment(s): cardiac stents Medications and Allergies Home Medications Medication Instructions Recorded Confirmed Type Arnica Gel Homeopathic 1 applic TOPICAL TID PRN 12/12/16 01/12/17 History Diphenox-Atrop 2.5-0.025 mg 2 tab PO QID PRN 12/12/16 01/12/17 History [Lomotil] HYDROcodone/APAP 10-325MG [[place] 1 - 2 tab PO Q4HR PRN MDD 6 TABS 12/12/1601/12 History 10-325] Iron Bisglycinate 25 mg PO BID 12/12/16 01/12/17 History LORazepam [Ativan] 1 tab PO TID 12/12/16 01/12/17 History Lidocaine-Prilocaine Cream [Emla 1 applic TOPICAL DAILY PRN 12/12/16 01/12/17 History Cream 2.5%/2.5%] Lipase/Protease/Amylase [Creon Dr 3 cap PO TID 12/12/16 01/12/17 History 36,000 Units Capsule] Loperamide [Imodium] 2 - 4 mg PO QID PRN 12/12/16 01/12/17 History Magnesium Citrate [Citrate of 150 ml PO BID PRN 12/12/16 01/12/17 History Magnesia] Ondansetron HCl [Zofran] 8 mg PO Q8H PRN 12/12/16 01/12/17 History Prochlorperazine [Compazine] 10 mg PO Q6H PRN 12/12/16 01/12/17 History Sennosides-Docusate Sodium 2 tab PO BID 12/12/16 01/12/17 History [Senokot-S] Stomatitis Cocktail 5 - 10 ml PO TID PRN 12/12/16 01/12/17 History Vitamin B Complex 1 cap PO DAILY 12/12/16 01/12/17 History Allergies Allergy/AdvReac Type Severity Reaction Status Date / Time No Known Allergies Allergy Verified 01/12/17 08:16 Physical Exam Vitals: Vital Signs Temp Pulse Pulse Resp BP BP Pulse Ox 01/12/17 11:52 92 01/12/17 11:38 92 01/12/17 07:53 96 01/12/17 07:41 96 01/12/17 07:00 99.4 F 108 H 16 118/74 92 L 01/12/17 05:22 100 01/12/17 05:13 96 01/12/17 01:58 99.9 F H 100 14 134/76 92 L 01/12/17 00:56 98.3 F 96 18 126/74 Intake and Output 01/11/17 01/12/17 01/12/17 22:59 06:59 14:59 Other: Voiding Method Toilet Toilet # Voids 2 - Constitutional General appearance: cooperative, mild distress, thin - EENT reddened oropharynx Eyes: anicteric sclerae, PERRLA, normal appearance ENT: hearing grossly normal - Neck Neck: no lymphadenopathy - Respiratory Respiratory: bilateral: rales (L>R) - Cardiovascular Heart sounds: normal: S1, S2 leg Peripheral Edema: bilateral: 1+, Pitting - Gastrointestinal General gastrointestinal: distended, hepatomegaly, normal bowel sounds Localized gastrointestinal: mass: epigastric periumbilical - Integumentary Integumentary: pale - Neurologic Neurologic: CNII-XII intact - Musculoskeletal Musculoskeletal: generalized weakness - Psychiatric Psychiatric: A&O x's 3, appropriate affect, intact judgment & insight Results CBC & Chem 7: 01/11/17 21:00 01/11/17 21:00 Chest x-ray: report reviewed Assessment and Plan (1) Pancreatic adenocarcinoma Narrative/Plan: Patient was most recently treated last week. The initial treatment sounds as though it was FOLFIRI or FOLFOX due to the discussion of a pump, likely his most recent treatment was something along the lines of Gemzar and Abraxane or maybe even Gemzar alone. Patient states he was doing [facility] today, they have calling rescheduled that appointment, they are waiting for that call back appointment. Patient will continue on follow-up with his treating oncologist at [facility]. Informed patient to take his hospital summary to his appointment with his oncologist. Status: Acute (2) Febrile illness, acute Narrative/Plan: Patient is currently being treated with Tamiflu for influenza B. No fevers since last evening. Patient will continue to be monitored. Status: Acute (3) Influenza B Status: Acute (4) Thrombocytopenia Narrative/Plan: From the cytopenias multifactorial including chemotherapy-induced as well as viral infection. Patient's platelet count today is 29,000. Hold all aspirin, NSAIDs, anticoagulation. Status: Acute (5) DVT (deep venous thrombosis) Narrative/Plan: Patient is on treatment dose of Lovenox for diagnosis of deep vein thrombosis. With his current platelet counts risk is higher than the benefit of anticoagulation at this time. Patient should have his platelets checked daily while he is inpatient. Platelets reaching 50,000 or higher patient will resume anticoagulation immediately. If patient is discharged did recommend patient close follow-up of this platelet counts so that he can resume his Lovenox as soon as possible. Status: Acute (6) Anemia aplastic aregenerative Narrative/Plan: Anemia is multifactorial including chemotherapy as well as a likely nutritional component due to the patient's poor oral intake. Dietitian has been consult and to maximize nutritional intake with minimal consumption. No acute intervention is needed at this time. Status: Acute
[2017-01-12 15:33] VITALS: BMI 22.3
[2017-01-12] MEDS: SODIUM CHLORIDE 0.9% 1,000 ML IV SCH (21:41)
[2017-01-13] MEDS: HYDROmorphone 2 MG TAB PO PRN ×4 (02:42→14:17)
[2017-01-13] MEDS: SODIUM CHLORIDE 0.9% 1,000 ML IV SCH (06:26)
--- NOTE | 2017-01-13 07:38 | HP ---
DATE OF ADMISSION: Patient is a very pleasant 41-year-old gentleman who used to follow with Dr. Calloway in the past for pancreatic cancer. Patient is receiving chemotherapy, please refer to Oncology for further chemotherapeutic details. Patient has extensive DVT in the past separately. Patient failed therapy with Xarelto. Subsequently started on ( ). Patient comes in with flulike symptoms, also had flu-like symptoms include body ache, muscle ache, denied any fever. Patient was started on Tamiflu. Patient was also started on cefepime but although patient does not have any neutropenia or fever at this point of time and patient does not need to be treated for neutropenic fever, probably those antibiotics can be discontinued. Patient is complaining of cough with whitish-yellowish sputum production. Patient denied any fever, chills, although apparently patient had some chills a while ago. Patient apparently had a low-grade fever as well 100.4. REVIEW OF SYSTEMS: GENERAL: As described in HPI. RESPIRATORY: As described in HPI. HEENT: No recent visual problems or hearing problems. Denied any sore throat. CARDIOVASCULAR: No chest pain, orthopnea, PND, no palpitations, no syncope. GASTROINTESTINAL: No diarrhea, no nausea, no vomiting, no abdominal pain. Normoactive bowel sounds. NEUROLOGICAL: No headaches, no weakness, no numbness. HEMATOLOGICAL: Denies any bleeding or petechiae. GENITOURINARY: Denies any burning micturition, frequency, or urgency. MUSCULOSKELETAL/RHEUMATOLOGICAL: Denies any joint pain, swelling, or any muscle pain. ENDOCRINE: Denies any polyuria or polydipsia. The rest of the 14 point review of systems is negative. Home medications include: 1. Diphenoxylate atropine. 2. Hydrocodone. 3. Acetaminophen. 4. Lorazepam. 5. Pancreatic enzyme supplementation. 6. Loperamide. 7. Ondansetron. 8. Compazine. 9. Vitamin B. 10. Famotidine. 11. Enoxaparin. 12. Hydromorphone. ALLERGIES: No known drug allergies. PAST MEDICAL HISTORY: Significant for extensive DVT in the past, pulmonary embolism in the past, failed therapy with Xarelto in the past and patient has pancreatic cancer. SOCIAL HISTORY: Patient continues to smoke, denied any alcohol abuse or any drug abuse. FAMILY HISTORY: Father had diabetes mellitus, pancreatic cancer, past away at age 45, mother had diabetes mellitus as well and cardiac stent. PHYSICAL EXAMINATION: Temperature 99.9, 24-hour T-max is 100.4, pulse of 94, respiratory rate of 16, blood pressure is 123/70, saturating at 94% on 2 L of O2 by nasal cannula. GENERAL EXAMINATION: Patient appears to be in distress, although I cannot say it is respiratory distress. Patient is thin-built, cachectic, appeared to malnourished. HEENT: Pupils are round and equally reacting to light. EOMI. No scleral icterus. No conjunctival pallor. Normocephalic, atraumatic. No pharyngeal erythema. No thyromegaly. CARDIOVASCULAR: S1 and S2 present. No murmurs, rubs, or gallops. PULMONARY: Chest is clear to auscultation, no wheezing or crackles. ABDOMEN: Soft, nontender, nondistended, normoactive bowel sounds. No palpable organomegaly. MUSCULOSKELETAL: No joint swelling or deformity. EXTREMITIES: No cyanosis, clubbing, or pedal edema. NEUROLOGICAL: Gross neurological examination did not reveal any focal deficits. SKIN: No rashes. LABORATORY DATA: CBC, CMP are abnormal for very low platelet count of 29,000. Sodium of 131, AST is 150, alkaline phosphatase is 617, influenza B is positive. Chest x-ray did not show any pneumonic process. ASSESSMENT AND PLAN: 1. Sepsis secondary to be influenza B, ( ) and the way patient is looking. I believe patient will benefit from one more day of hospitalization. Patient will be continued on Tamiflu although, antibiotics may not be necessary. Those will be discontinued upon discharge with a lower antibiotic like azithromycin as I cannot give doxycycline because of his already existing thrombocytopenia. 2. Thrombocytopenia possibly secondary to chemotherapy and possibly immunosuppression secondary to that and because of thrombocytopenia, Enoxaparin cannot be used. 3. Enoxaparin will be discontinued and Cardiology will evaluate the patient as well. 4. Pancreatic cancer. Patient is on chemotherapy, appears to have failed ( ). Please refer to Oncology decision for that pain management.
[2017-01-13] MEDS: OSELTAMIVIR 75 MG CAP PO SCH (07:54)
[2017-01-13] MEDS: LORazepam 1 MG TAB PO SCH (07:55)
[2017-01-13] MEDS: CREON 24000 UNIT PO SCH ×2 (07:55→12:23)
[2017-01-13] MEDS: CEFEPIME 2 GM in SODIUM CHLORIDE 0.9% 50 ML IVPB SCH (07:55)
[2017-01-13] MEDS: IPRATROPIUM-ALBUTEROL 3 ML NEB INHALATION SCH ×3 (08:04→12:53)
[2017-01-13] MEDS ORDERED: FAMOTIDINE 20 MG TAB PO SCH (09:00)
[2017-01-13 09:48] LABS: INR 1.7 (<1.1); Prothrombin Time 16.5 sec (9.0-12.0)
[2017-01-13 09:53] VITALS: BP 116/93; TEMP 98.3
[2017-01-13 10:03] LABS: Anisocytosis Slight; CH 26.1; HCT 29.9 % (39.0-53.0); HDW 2.92; HGB 9.5 gm/dL (13.0-17.5); Hypochromasia Slight; MCH 26.7 pg (25.0-35.0); MCHC 31.7 g/dL (31.0-37.0); MCV 84.3 fL (80.0-100.0); Mean Platelet Volume 9.9; RBC 3.55 m/uL (4.30-5.90); RDW 17.2 % (11.5-15.5); WBC 4.4 k/uL (3.8-10.6); WBC (Perox) 4.63
[2017-01-13 12:30] LABS: Add Differential Manual Differential
[2017-01-13 12:33] LABS: Nucleated Red Blood Cells 0 /100 WBC (0-0); Total Cells Counted 100
[2017-01-13 12:37] LABS: Polychromasia Present
[2017-01-13 12:55] VITALS: RESP 18
[2017-01-13 13:08] VITALS: PULSE 100
--- NOTE | 2017-01-14 10:26 | DS ---
DATE OF ADMISSION: 01/12/2017 DATE OF DISCHARGE: 01/13/2017 Patient is a 41-year-old diagnosed with pancreatic cancer. There is a family history of pancreatic cancer. The patient has advanced metastatic pancreatic cancer. The patient failed multiple outpatient chemotherapies in the past. Patient, in the past, was told patient's prognosis was extremely poor and then he went to [facility] in [place] and was started on a new regimen without any significant improvement. Patient comes in here because of flu-like symptoms, found to have influenza B. Patient was started on Tamiflu. The patient has had DVTs in the past in spite of Xarelto. The patient was started on Lovenox but unfortunately the Lovenox was discontinued by our service as per recommendation for Oncology because of low platelet count of 39,000. Part of the low platelet count is due to acute viral illness. Now today it is 39,000. The patient was instructed to see his oncologist in 2 to 3 days and platelet count needs to be re-tested, needs to be restarted back on Lovenox as soon as possible, although his overall prognosis is extremely poor. The patient is on chemotherapy that is being done at the [facility]. I discussed his options of hospice with him and the option of continuing the chemotherapy and expectorations. Patient did not make any decisions of hospice or comfort care at this point of time, although patient has extremely poor prognosis, and high risk for readmission. The patient is short of breath, just with minimal ambulation, probably related to his previous pulmonary embolisms or he may even have a new PE. I offered him an option of evaluation by vascular surgery for an IVC filter placement. Patient declined that and wanted to just go home, and albuterol inhaler. I am also giving him azithromycin. Doxycycline affects is bone marrow, because of which I am not giving him and doxycycline at this point of time. Beyond that, there is no evidence of pneumonia at this point of time, but patient is high risk for that because of his immunosuppressed state secondary to cancer. Patient's vital signs are fairly stable at this point of time except for mild tachycardia. The patient is thin built, cachectic, gets easily short of breath upon ambulation. ASSESSMENT AND PLAN: 1. Sepsis secondary to influenza B. 2. Thrombocytopenia secondary to chemotherapy as well as acute viral illness. 3. Pulmonary embolism in the past. 4. Pancreatic cancer. I had an extensive discussion with the family regarding all the options. The patient may need oxygen, we will arrange for that oxygen. Patient will be discharged today as per the request of the patient. Please refer to my depart summary for the list of discharge medications. I spent greater than 35 minutes in total discharge process. DISCHARGE DIET: Regular. FOLLOWUP: Follow up with oncologist in a couple of days. Need to get his platelet count retested. I spent greater than 35 minutes in total discharge process.
== END 2017-01-13 15:09 | disposition home or self-care (01) | DRG 871 ==
LOC: EC 20:29 → 4MS4W 01-12 00:34
PROVIDERS: ADMIT Internal Medicine; ATTEND Internal Medicine
DX: A41.89 Other specified sepsis (principal); D61.1 Drug-induced aplastic anemia; C25.9 Malignant neoplasm of pancreas, unspecified; C78.7 Secondary malignant neoplasm of liver and intrahepatic bile duct; D69.59 Other secondary thrombocytopenia; J10.1 Influenza due to other identified influenza virus with other respiratory manifestations; F17.200 Nicotine dependence, unspecified, uncomplicated; J98.01 Acute bronchospasm; F41.9 Anxiety disorder, unspecified; T45.1X5A Adverse effect of antineoplastic and immunosuppressive drugs, initial encounter; Z79.899 Other long term (current) drug therapy; Y92.9 Unspecified place or not applicable
CPT/HCPCS: 36415; 71020; 80053; 82550; 82553; 83735; 83880; 84484; 85025; 85610; 85730; 87040; 87502; 93005; 94640; 96361; 96365; 96375; 96376; 99285

== ENCOUNTER 2017-01-20 13:20 | Day surgery (SDC) | payer BC, OTHER ==
[2017-01-20 14:27] VITALS: RESP 14; TEMP 97.6
[2017-01-20 15:27] VITALS: BP 121/72; PULSE 96
--- NOTE | 2017-01-20 16:02 | US ---
EXAMINATION TYPE: US paracentesis abd w/image DATE OF EXAM: 01/20/2017 3:31 PM COMPARISON: NONE HISTORY: Ascites. PROCEDURE: Maximal barrier technique was utilized. The skin overlying a suitable pocket of fluid was localized with ultrasound and the overlying skin was prepped and draped. Ultrasound was utilized with sterile technique. Lidocaine was used for local anesthesia and a skin brian made with a scalpel. Catheter was advanced under direct ultrasound guidance into a suitable pocket of fluid and approximately 3.2 liter s of serous fluid were removed. Catheter was withdrawn and hemostasis achieved. There is no immedia te complication; the patient is discharged in stable condition. IMPRESSION: STATUS POST ULTRASOUND GUIDED PARACENTESIS FOR PALLIATION OF ASCITES. THIS PROCEDURE WA S PERFORMED BY THE UNDERSIGNED.
== END 2017-01-20 15:45 | disposition home or self-care (01) ==
LOC: RADPROMAIN 13:20
PROVIDERS: ATTEND Internal Medicine Hematology & Oncology
DX: R18.8 Other ascites (principal)
CPT/HCPCS: 49083

== ENCOUNTER 2017-02-11 12:28 | Day surgery (SDC) | payer BC, OTHER ==
[2017-02-11 13:13] VITALS: RESP 20; TEMP 98.1
[2017-02-11 13:15] LABS: Mean Platelet Volume 7.5
[2017-02-11 13:20] LABS: INR 1.2 (<1.1); Prothrombin Time 11.9 sec (9.0-12.0)
[2017-02-11 14:34] VITALS: BP 105/72; PULSE 70
--- NOTE | 2017-02-11 16:24 | US ---
EXAMINATION TYPE: US paracentesis abd w/image DATE OF EXAM: 02/11/2017 2:46 PM COMPARISON: NONE HISTORY: Ascites. PROCEDURE: Maximal barrier technique was utilized. The skin overlying a suitable pocket of fluid was localized with ultrasound and the overlying skin was prepped and draped. Ultrasound was utilized with sterile technique. Lidocaine was used for local anesthesia and a skin brian made with a scalpel. Catheter was advanced under direct ultrasound guidance into a suitable pocket of fluid and approximately 2.9 liter s of serous fluid were removed. Catheter was withdrawn and hemostasis achieved. There is no immedia te complication; the patient is discharged in stable condition. IMPRESSION: STATUS POST ULTRASOUND GUIDED PARACENTESIS FOR PALLIATION OF ASCITES. THIS PROCEDURE WA S PERFORMED BY THE UNDERSIGNED.
== END 2017-02-11 15:00 | disposition home or self-care (01) ==
LOC: RADPROMAIN 12:28
PROVIDERS: ATTEND Internal Medicine
DX: R18.8 Other ascites (principal); S25.01XA Minor laceration of thoracic aorta, initial encounter
CPT/HCPCS: 36415; 49083; 85049; 85610